=== PATIENT | male | born 1945 | race Caucasian/White ===

== ENCOUNTER 2019-08-08 09:42 | Outpatient (CLI) | payer MEDICARE, OTHER, SELFPAY ==
[2019-08-08 11:10] LABS: Basophils % 0.4 %; Eosinophils # 0.3 10^3/uL (0.0-0.8); Hemoglobin 14.5 g/dL (11.7-16.6); Lymphocytes # 1.6 10^3/uL (0.8-4.8); Lymphocytes % 22.1 %; Mean Corpuscular Hemoglobin 31.7 pg (28.0-34.0); Mean Corpuscular Volume 96.1 fL (80-94); Mean Platelet Volume 9.7 fL (7.4-10.4); Monocytes # 0.5 10^3/uL (0.2-0.9); Monocytes % 7.1 %; Neutrophils # 4.6 10^3/uL (1.8-7.7); Neutrophils % 66.1 %; Nucleated Red Blood Cells % 0 %; Platelet Count 263 10^3/cmm (130-400); Red Blood Count 4.58 10^6/uL (4.1-5.3); Red Cell Distribution Width 12.3 % (12.1-15.1)
[2019-08-08 11:41] LABS: Prostate Specific Antigen < 0.02 ng/mL (0-4)
[2019-08-08 11:52] LABS: Alanine Aminotransferase 16 U/L (0-41); Alkaline Phosphatase 74 IU/L (40-130); Anion Gap 15.4 (5-19); Aspartate Amino Transferase 15 U/L (0-40); Blood Urea Nitrogen 19 mg/dL (8-23); Calcium 9.7 mg/dL (8.5-10.5); Carbon Dioxide 27 mmol/L (22-29); Chloride 99 mmol/L (98-107); Globulin 2.5 g/dL (1.3-4.6); Glucose 122 mg/dL (65-115); Osmolality Calculated 282 mOsm/kg (285-295); Potassium 4.4 mmol/L (3.5-5.1); Sodium 137 mmol/L (136-145); Total Bilirubin 0.2 mg/dL (0.15-1.2); Total Protein 6.5 g/dL (6.6-8.7)
== END 2019-08-08 09:43 | disposition home or self-care (01) ==
LOC: ONCMED 09:42
PROVIDERS: Family Provider Internal Medicine; PCP Internal Medicine; Visit Provider Internal Medicine Hematology & Oncology
DX: C61 Malignant neoplasm of prostate (principal)
CPT/HCPCS: 36415; 80053; 84153; 85025

== ENCOUNTER 2019-08-12 08:18 | Outpatient (CLI) | payer MEDICARE, OTHER, SELFPAY ==
[2019-08-12] MEDS: lidocaine 1% INJ 20 mL INJECTION (09:00)
[2019-08-12] MEDS: goserelin acetate 10.8 mg Implant IM (09:15)
--- NOTE | 2019-08-12 17:39 | ONC FU_ITS ---
Dr. Loera follow up note Patient: Augusto Lancaster Unit #: [id number]: 1945 Dicatated By: Jovi Loera M.D.Date of Visit:Aug 12, 2019 Onc Med Follow-up/Prog Note History of Present Illness: Mr. Augusto Lancaster, 73-year-old gentleman who was diagnosed with prostrate cancer in September [address] scan of the pelvis done in September 2015 for staging purposes showed left pelvic lymphadenopathy without obvious bony disease. And his PSA was more than 700. In September 2015, He was started on combined androgen blockade with Zoladex and bicalutamide, with excellent response his repeat PSA on 05/02/2017 showed PSA less than 0.04 and testosterone less than 23 and OSMEL showed prostate was benign and tiny.Last 3 monthly dose of Zoladex was given on 02/02/2018 at that time at patient request it was changed to every 6 months.And bicalutamide was also discontinued because of related side effect and intolerance generalized weakness and fatigue, occasionally hot flashes and erectile dysfunction. seen by Dr. Flower on 10/31/2018 at that time role of ADT or castration was discussed in detail. Patient is reluctant to consider castration and also wants to delay Zoladex beyond 6 months. To resolve this issue he was referred to urology oncology at [facility] for evaluation where he was seen by Dr. Ramirez on 02/21/2019 and his recommendations were to continue with ADT as long as patient is tolerating and responding as there is a limited data to suggest equivalence for intermittent versus continuous dosing. And also mentioned that that his harm for use of intermittent ADT therapy for patient with metastatic prostrate cancer. Patient said he did discuss with him regarding schedule 3 months versus 6 months and approved 6 monthly ADT and patient is happy with that dosing and schedule, knowing the risk versus benefits. Came for follow-up, denies any specific complaints, no fever or chills, no nausea or vomiting, no diarrhea constipation,, no new bony pains. Tolerating 6 monthly Zoladex well Medications: There is no information available for Current Medications - Patient. Allergies: No Known Allergies. Review of Systems: Constitutional - Appetite is good and weight is stable. No fever, chills, hot flashes, or night sweats. Energy level is good, ENMT - No sinus congestion/drainage. No mouth sores. No sore throat or difficulty swallowing, Hematologic/Lymphatic - No abnormal bruising or bleeding, Respiratory - No shortness of breath. No cough. No pleuritic pain or hemoptysis, Cardiovascular - No angina pain. No palpitations, Gastrointestinal - No nausea or vomiting. No heartburn or acid reflux. No diarrhea or constipation. No blood in the stool or black stools, Genitourinary (M) - No dysuria or hematuria. No urinary frequency. No urgency or incontinence, Musculoskeletal - No joint or bone pain, Neurologic - No headache or dizziness. No numbness/paresthesias or other focal neurologic symptoms, Psychiatric - No anxiety or depression. No insomnia. Vital Signs: Performed on Aug 12, 2019 08:37 Height - 72.00 in Weight - 151.4 lbs (LOW) BSA - 1.89 sq.m BMI - 20.53 Temperature - 97.8 F (LOW) Pulse - 75 /min Respiration - 17 /min BP - 139/72 mm(hg) O2 Sat - 93 % (LOW) Pain - 0 Performance Status: 0 - Fully active, able to carry on all predisease activities without restrictions. (ECOG) Physical Examination: ENMT - no mouth sores, Respiratory - clear to auscultation, Cardiovascular - Regular rate and rhythm of heart, Abdomen - nontender, bowel sounds present, Extremities - no visible edema. Lab/Imaging: Most recent lab results are not available for this patient. Impression: Left prostrate cancer per needle biopsy done on 10/02/2015, showed involvement of left lateral apex [place] score 3+4 ,90% involvement, left lateral mid involvement [place] score 3+ 4, 80% involvement Left lateral base, [place] score 3+4, 90% involvement PSA time of diagnosis more than 700, CT scan of the pelvis done in September 2015 showed left pelvic lymphadenopathy with no obvious bone involvement Started on combined androgen blockade with Zoladex 10.8 mg every 3 months and bicalutamide 50 mg by mouth daily in September 2015. With excellent response confirmed with last PSA 0.04, testosterone less than 23, OSMEL showed tiny and benign appearing prostate gland on 05/02/2017 , in urology clinic follow-up visit and last Zoladex injection was given on 05/02/2017 PSA checked on 07/24/[address] scan of abdomen pelvis done on 11/30/2017 showed no metastatic disease bone scan done on 11/30/2017 showed no suspicious bone activities to suggest metastatic disease Plan: Discussed with patient regarding his labs white blood count 7 hemoglobin 14.5 crit 44 platelets 263,000 CMP within normal limits PSA less than 0.02 Clinically, patient is doing well with no signs symptoms suggestive of recurrence of disease, tolerating Zoladex well. We'll proceed with the next 6 monthly dose of Zoladex today and then he will return to clinic in 6 months with PSA. Signed By: Jovi Loera M.D. <<Signature on File>>
== END 2019-08-12 08:19 | disposition home or self-care (01) ==
LOC: ONCMED 08:18
PROVIDERS: Family Provider Internal Medicine; PCP Internal Medicine; Visit Provider Internal Medicine Hematology & Oncology
DX: C61 Malignant neoplasm of prostate (principal); Z79.818 Long term (current) use of other agents affecting estrogen receptors and estrogen levels
CPT/HCPCS: 96372; 96402; 99214; J2001; J9202

== ENCOUNTER 2020-02-07 10:47 | Outpatient (CLI) | payer MEDICARE, OTHER, SELFPAY ==
[2020-02-07 11:42] LABS: Prostate Specific Antigen 0.013 ng/mL (0-4)
== END 2020-02-07 10:48 | disposition home or self-care (01) ==
LOC: ONCMED 10:50
PROVIDERS: PCP Internal Medicine; Visit Provider Internal Medicine Hematology & Oncology
DX: C61 Malignant neoplasm of prostate (principal)
CPT/HCPCS: 36415; 84153

== ENCOUNTER 2020-02-10 05:45 | Outpatient (CLI) | payer MEDICARE, OTHER, SELFPAY ==
[2020-02-10] MEDS: lidocaine 1% INJ 20 mL INJECTION (14:45)
--- NOTE | 2020-02-10 14:48 | ONC FU_ITS ---
Thuan Rasmussen Patient Note Patient: Augusto Lancaster Unit #: [id number]: 1945 Dictated By: Celi PereyraDate of Visit: Feb 10, 2020 Onc MED Follow-Up/Prog Note Chief Complaint: Prostrate cancer History of Present Illness: Mr. Augusto Lancaster, 73-year-old gentleman who was diagnosed with prostate cancer in September [address] scan of the pelvis done in September 2015 for staging purposes showed left pelvic lymphadenopathy without obvious bony disease. His PSA was more than 700. In September 2015, he was started on combined androgen blockade with Zoladex and bicalutamide, with excellent response. His repeat PSA on 05/02/2017 showed PSA less than 0.04 and testosterone less than 23. OSMEL showed prostate was benign and tiny. A 3 month dose of Zoladex was given on 02/02/2018 at that time at patient request it was changed to every 6 months. Bicalutamide was also discontinued because of related side effect and intolerance Mr Lancaster continued to have generalized weakness and fatigue, occasionally hot flashes and erectile dysfunction. He was seen by Dr. Flower on 10/31/2018 at that time role of ADT or castration was discussed in detail. Patient is reluctant to consider castration and also wants to delay Zoladex beyond 6 months. To resolve this issue he was referred to urology oncology at [facility] for evaluation where he was seen by Dr. Ramirez on 02/21/2019 and his recommendations were to continue with ADT as long as patient is tolerating and responding, as there is a limited data to suggest equivalence for intermittent versus continuous dosing. Patient said he did discuss with him regarding schedule 3 months versus 6 months and approved 6 monthly ADT and patient is happy with that dosing and schedule, knowing the risk versus benefits. Mr. Lancaster is here today for follow-up. He is due for his 6-month dose of Zoladex. He looks well in general. He denies any fever or chills. He has had no signs or symptoms of infection for at least the last 72 hours. He denies any new shortness of breath orthopnea but states he is having persistent cough. His states that she thinks it is getting worse. She states he does smoke and has had a long-term history of smoking. Thus far it has been nonproductive but hacking she states she has heard some wheezing with him from time to time as well. He denies any nausea or vomiting. He has poor appetite. He has not tried any appetite stimulants. His ECOG is 1. He continues to have weight loss per his . His weight today is stable compared to August 12, 2019. We did discuss Marinol at length and he is willing to try this if his insurance will approve it otherwise he may try to partake in medicinal marijuana. He states he has been having some right shoulder discomfort and upper arm pain. He states it radiates around to his back towards the clavicles and upper ribs. He denies any trauma. He states he had been throwing sticks for his dog and wondered if he got something out of place at that time . This is been ongoing for several weeks now and is not improving. He has had no swelling or warmth. He denies any redness at the site. It is nontender on palpation. He states his bowel and bladder function are normal for him. He has had no neuropathy. He tolerated the last dose of Zoladex well. Past Medical History: Chronic obstructive pulmonary disease History of colon cancer Broken clavicle in 2008 Past Surgical History: TRUSP in 2016 Bilateral ORIF legs in 2001 Partial colon removal in 1995 Allergies: No Known Allergies. Medications: Family History: Mr. Lancaster's mother is . Mr. Lancaster's father is : stroke, and cva, and heart disease. mother had cancer-pt unsure what type. Social History: Mr. Lancaster is and he is retired. He is a daily smoker who smokes 0.5 packs/day. He is a former drinker. He has indicated exposure to the following products: cigarettes. Mr. Lancaster reports the following support systems: lives with spouse, significant other, family, or friends. His diet consists of regular meals. He indicates his activity level as: regular exercise. Review Of Symptoms: Constitutional Denies fevers, chills, night sweats, excessive fatigue or weight loss. Allergic/Immunologic No reactions. Eyes Denies significant visual changes. No diplopia. No amaurosis. ENMT Denies changes in hearing, sore throat, mouth sores, difficulty or changes in swallowing ability, and/or sinus drainage. Endocrine No diabetes, thyroid disease or hormone replacement. Denies hot flashes or night sweats. Hematologic/Lymphatic Denies easy bruising or bleeding. The patient denies any tender or palpable lymph nodes. Respiratory Denies dyspnea on exertion, chest pain, cough or hemoptysis. Denies orthopnea. Cardiovascular Denies anginal chest pain, palpitations or orthopnea. Gastrointestinal Denies nausea, vomiting, diarrhea, GI bleeding, or constipation. Denies change in bowel habits and/or stool color, no heartburn or early satiety. Genitourinary (M) Denies hematuria, dysuria, increased frequency, urgency, hesitancy or incontinence. Musculoskeletal Denies joint pain, swelling or redness. Right shoulder pain and limited ROM-see above. Integumentary Denies chronic rashes, inflammation, ulcerations or skin changes. Neurologic Denies headache, blurred vision, and no areas of focal weakness or numbness. Normal gait. No sensory problems. Psychiatric Denies insomnia, depression, gunjan or mood swings. Vital Signs: Performed on Feb 10, 2020 14:04 Height - 72.00 in Weight - 151.0 lbs (LOW) BSA - 1.89 sq.m BMI - 20.48 Temperature - 99.0 F (HIGH) Pulse - 87 /min Respiration - 20 /min BP - 124/69 mm(hg) O2 Sat - 96 % Pain - 0,0 - Fully active, able to carry on all predisease activities without restrictions. (ECOG) Physical Examination: Constitutional Alert, oriented, no acute distress. Skin pink, warm and dry. Head Normocephalic; atraumatic. Eyes Conjunctivae and sclerae are clear and without icterus. Pupils are reactive and equal. Neck Supple without masses or thyromegaly. No jugular venous distension. Hematologic/Lymphatic No petechiae or purpura. No tender or palpable lymph nodes in the cervical or supraclavicular areas. Respiratory Lungs are clear to auscultation without rhonchi or wheezing. Cardiovascular Regular rate and rhythm of heart without murmurs,clicks, gallops or rubs. Chest Chest is symmetric without chest wall deformities. Abdomen Non-tender, non-distended, no masses or ascites. Good bowel sounds noted in all quads. No guarding or rebound tenderness. No pulsatile masses. Back/Spine Non-tender to palpation. Extremities No visible deformities, no cyanosis, clubbing or edema. Musculoskeletal No tenderness or swelling, normal range of motion without obvious weakness except right shoulder is limited due to pain. Integumentary No rashes or lesions. Neurologic No sensory or motor deficits, normal cerebellar function, normal gait. Psychiatric Alert and oriented times three. Coherent speech. Verbalizes understanding of our discussions today. Laboratory:see flow sheet and below for labs from 02/07/2020 Impression: Left prostrate cancer per needle biopsy done on 10/02/2015, showed involvement of left lateral apex Darby score 3+4 ,90% involvement, left lateral mid involvement [place] score 3+ 4, 80% involvement Left lateral base, Darby score 3+4, 90% involvement PSA time of diagnosis more than 700, CT scan of the pelvis done in September 2015 showed left pelvic lymphadenopathy with no obvious bone involvement Started on combined androgen blockade with Zoladex 10.8 mg every 3 months and bicalutamide 50 mg by mouth daily in September 2015. With excellent response confirmed with last PSA 0.04, testosterone less than 23, OSMEL showed tiny and benign appearing prostate gland on 05/02/2017 , in urology clinic follow-up visit and last Zoladex injection was given on 05/02/2017 PSA checked on 07/24/[address] scan of abdomen pelvis done on 11/30/2017 showed no metastatic disease bone scan done on 11/30/2017 showed no suspicious bone activities to suggest metastatic disease Clinically, Mr Lancaster is doing well with no signs symptoms suggestive of recurrence of disease. He is tolerating Zoladex well. Plan: 1. Proceed with Zoladex today as scheduled. He is doing 10.8 mg every 6 months. 2. I have requested right shoulder, right humerus, right rib series as well as a chest x-ray for complaints as noted above. He plans to do these today while he is here. 3. Labs from February 07, 2020 were reviewed in detail and discussed with Mr. Mrs. Lancaster and a copy was given to them. His PSA was 0.013. 4. We will send in a request for prior authorization for Marinol 2.5 mg 1 or 2 up to 3 times daily for appetite. 5. We will plan to have Mr. Lancaster return in 6 months for his follow-up at which time I requested a CBC CMP PSA and testosterone level. He will be due for his 6-month Zoladex at that time as well. 6. Mr. Haley was instructed to contact us in the interim should questions or problems arise. We will call him with the x-rays once those are available. Signed By: Celi Pereyra-, AOCNP Jovi Loera MD <<Signature on File>>
--- NOTE | 2020-02-10 14:51 | ONC FU_ITS ---
Thuan Rasmussen Patient Note Patient: Augusto Avery Unit #: [id number]: 1945 Dictated By: Celi PereyraDate of Visit: Feb 10, 2020 Onc MED Follow-Up/Prog Note ADDENDUM: Mr. Haley declined a flu shot today. I do not believe in them . Signed By: Celi Pereyra-LUIS DANIEL AOCNP <<Signature on File>>
[2020-02-10] MEDS: goserelin acetate 10.8 mg Implant IM (15:00)
== END 2020-02-10 05:46 | disposition home or self-care (01) ==
LOC: ONCMED 05:47
PROVIDERS: PCP Internal Medicine; Visit Provider Nurse Practitioner
DX: C61 Malignant neoplasm of prostate (principal); R97.20 Elevated prostate specific antigen [PSA]; Z79.818 Long term (current) use of other agents affecting estrogen receptors and estrogen levels
CPT/HCPCS: 96372; 96402; 99214; J9202

== ENCOUNTER 2020-08-11 12:13 | Outpatient (CLI) | payer MEDICARE, OTHER, SELFPAY ==
[2020-08-11 12:45] LABS: Basophils % 0.5 %; Eosinophils # 0.2 10^3/uL (0.0-0.8); Eosinophils % 2.2 %; Hematocrit 43.6 % (42.0-52.0); Hemoglobin 14.4 g/dL (11.7-16.6); Lymphocytes # 1.9 10^3/uL (0.8-4.8); Lymphocytes % 23.7 %; Mean Corpuscular Hemoglobin 31.8 pg (28.0-34.0); Mean Corpuscular Volume 96.2 fL (80-94); Mean Platelet Volume 9.7 fL (7.4-10.4); Monocytes # 0.5 10^3/uL (0.2-0.9); Monocytes % 6.4 %; Neutrophils # 5.47 10^3/uL (1.8-7.7); Nucleated Red Blood Cells % 0 %; Platelet Count 271 10^3/cmm (130-400); Red Blood Count 4.53 10^6/uL (4.1-5.3); Red Cell Distribution Width 12.5 % (12.1-15.1); White Blood Count 8.2 10^3/uL (4.0-10.0)
[2020-08-11 13:32] LABS: Alanine Aminotransferase 14 U/L (0-41); Albumin Level 4.3 g/dL (3.5-5.2); Alkaline Phosphatase 80 IU/L (40-130); Anion Gap 15.2 (5-19); Aspartate Amino Transferase 13 U/L (0-40); Blood Urea Nitrogen 14 mg/dL (8-23); Calcium 9.1 mg/dL (8.5-10.5); Carbon Dioxide 26 mmol/L (22-29); Chloride 100 mmol/L (98-107); Globulin 2.4 g/dL (1.3-4.6); Glucose 106 mg/dL (65-115); Osmolality Calculated 285 mOsm/kg (285-295); Potassium 4.2 mmol/L (3.5-5.1); Sodium 137 mmol/L (136-145); Total Bilirubin 0.2 mg/dL (0.15-1.2); Total Protein 6.7 g/dL (6.6-8.7)
[2020-08-11] MEDS: lidocaine 1% INJ 20 mL INJECTION (14:54)
[2020-08-11] MEDS: goserelin acetate 10.8 mg Implant IM (15:05)
--- NOTE | 2020-08-16 20:33 | ONC FU_ITS ---
Dr. Loera follow up note Patient: Augusto Lancaster Unit #: [id number]: 1945 Dicatated By: Jovi Loera M.D.Date of Visit:Aug 11, 2020 Onc Med Follow-up/Prog Note History of Present Illness: Mr. Augusto Lancaster, 74-year-old gentleman who was diagnosed with prostate cancer in September [address] scan of the pelvis done in September 2015 for staging purposes showed left pelvic lymphadenopathy without obvious bony disease. His PSA was more than 700. In September 2015, he was started on combined androgen blockade with Zoladex and bicalutamide, with excellent response. His repeat PSA on 05/02/2017 showed PSA less than 0.04 and testosterone less than 23. OSMEL showed prostate was benign and tiny. A 3 month dose of Zoladex was given on 02/02/2018 at that time at patient request it was changed to every 6 months. Bicalutamide was also discontinued because of related side effect and intolerance Mr Lancaster continued to have generalized weakness and fatigue, occasionally hot flashes and erectile dysfunction. He was seen by Dr. Flower on 10/31/2018 at that time role of ADT or castration was discussed in detail. Patient is reluctant to consider castration and also wants to delay Zoladex beyond 6 months. To resolve this issue he was referred to urology oncology at [facility] for evaluation where he was seen by Dr. Ramirez on 02/21/2019 and his recommendations were to continue with ADT as long as patient is tolerating and responding, as there is a limited data to suggest equivalence for intermittent versus continuous dosing. Patient said he did discuss with him regarding schedule 3 months versus [address]Knoche approved 6 monthly ADT and patient is happy with that dosing and schedule, knowing the risk versus benefits. Came for follow-up, denies any specific complaints, no fever chills, no nausea or vomiting, no diarrhea constipation, no new bony pains, appetite is good occasionally hot flashes otherwise tolerating 6 monthly Zoladex well Medications: There is no information available for Current Medications - Patient. Allergies: No Known Allergies. Review of Systems: Review of Systems is not available for this patient. Vital Signs: Performed on Aug 11, 2020 14:44 Height - 72.00 in Weight - 155.4 lbs (HIGH) BSA - 1.91 sq.m BMI - 21.08 Temperature - 96.3 F (LOW) Pulse - 58 /min (LOW) Respiration - 18 /min BP - 152/67 mm(hg) (HIGH) O2 Sat - 93 % (LOW) Pain - 0 Fatigue - 0 Performance Status: 0 - Fully active, able to carry on all predisease activities without restrictions. (ECOG) Physical Examination: ENMT - No mouth sores, no thrush, no jaundice, Respiratory - Lungs are clear to auscultation, Cardiovascular - Regular rate and rhythm of heart, Abdomen - Soft, bowel sounds present, Extremities - No visible edema. Lab/Imaging: Most recent lab results are not available for this patient. Impression: Left prostrate cancer per needle biopsy done on 10/02/2015, showed involvement of left lateral apex Darby score 3+4 ,90% involvement, left lateral mid involvement Darby score 3+ 4, 80% involvement Left lateral base, [place] score 3+4, 90% involvement PSA time of diagnosis more than 700, CT scan of the pelvis done in September 2015 showed left pelvic lymphadenopathy with no obvious bone involvement Started on combined androgen blockade with Zoladex 10.8 mg every 3 months and bicalutamide 50 mg by mouth daily in September 2015. With excellent response confirmed with last PSA 0.04, testosterone less than 23, OSMEL showed tiny and benign appearing prostate gland on 05/02/2017 , in urology clinic follow-up visit and last Zoladex injection was given on 05/02/2017 PSA checked on 07/24/[address] scan of abdomen pelvis done on 11/30/2017 showed no metastatic disease bone scan done on 11/30/2017 showed no suspicious bone activities to suggest metastatic disease Plan: Discussed with patient regarding his labs white blood count 8.2 hemoglobin 14.4 hematocrit 43.6 platelets 271,000 CMP within normal limits PSA 0.010 compared to 0.013 previously Clinically, patient doing well with no new signs symptom suggestive of disease progression, tolerating 6 monthly Zoladex well, will proceed with next dose today and then he will return to clinic in 6 months with a PSA Signed By: Jovi Loera M.D. <<Signature on File>>
== END 2020-08-11 12:14 | disposition home or self-care (01) ==
PROVIDERS: PCP Internal Medicine; Visit Provider Internal Medicine Hematology & Oncology
DX: Z51.11 Encounter for antineoplastic chemotherapy (principal); C61 Malignant neoplasm of prostate; R97.20 Elevated prostate specific antigen [PSA]; R59.0 Localized enlarged lymph nodes; Z79.818 Long term (current) use of other agents affecting estrogen receptors and estrogen levels; Z79.899 Other long term (current) drug therapy
CPT/HCPCS: 36415; 80053; 84153; 85025; 96372; 96402; 99215; J9202

== ENCOUNTER 2020-12-23 09:55 | Emergency (ER) | payer MEDICARE, OTHER, SELFPAY ==
[2020-12-23 10:12] VITALS: BP 125/76; PULSE 97; RESP 17; TEMP 36.6; O2SAT 91; BMI 21.2
[2020-12-23 10:15] VITALS: BP 107/74; PULSE 90; RESP 19; O2SAT 90
--- NOTE | 2020-12-23 10:22 | XR_ITS ---
WS: [id number] Portable AP upright chest, 12/23/2020 Clinical Data: SOB Comparison: PA and lateral chest, 05/16/2017. Findings: No nodules, masses or effusions are seen. The heart is normal. The pulmonary vascularity is not increased. No pneumonia or pneumothorax is seen. The diaphragms are flattened. There is an old d istal right clavicular fracture. The aortic arch and descending aorta show calcification and tortuosi ty. Monitor leads are on the chest wall. XR/XR chest 1V portable [id number] Impression: Atherosclerosis and hyperinflation.
--- NOTE | 2020-12-23 10:23 | W.ED.GENADLT ---
HPI - General Adult General: Chief complaint: General Medical Stated complaint: multiple complaints Time Seen by Provider: 12/23/20 10:13 History of Present Illness: HPI narrative: Patient complains about back in right shoulder pain that started with dizziness about a week ago. Had an unknown LOC after the dizzy spell. Decided come in at that time said he has not really got feeling much better does have a shortness of breath with exertion which is gone for quite a while does have COPD and emphysema has history of prostate and colon cancer currently under treatment with radiation seeds in his prostate and gets a shot every 6 months. Patient denies any recent illness nausea and vomiting fever chills or other related problems currently pain resides in right shoulder chest area did have some numbness go down his left arm last couple days. Quit smoking 2 months ago Onset (ago): week(s) Radiation: back Severity: mild Severity scale (1-10): 3 Associated symptoms: Reports dyspnea (On exertion); Deny chest pain, headache(s), nausea, rash or vomiting Review of Systems Narrative: Sporadic numbness going down left arm Const: Denies: fever(s), chills or body aches Eyes: Denies: change in vision or blurry vision ENMT: Denies: throat pain or nasal congestion Card: Denies: chest pain or dyspnea on exertion Resp: Reports: dyspnea (On exertion); Denies: productive cough or non-productive cough GI: Denies: abdominal pain, nausea or vomiting : Denies: difficulty urinating Musc: Reports: back pain (Right shoulder area); Denies: extremity pain Skin/Breast: Denies: rash Neuro: Denies: headache(s) Psych: Denies: anxiety or depression Jaison/Lymph: Denies: easy bruising Physical Exam Const: COMMON NORMALS: no acute distress, average body habitus and patient oriented x3 HENMT: COMMON NORMALS: normocephalic HEAD & SCALP: normal to inspection and normocephalic FACE & SINUS: normal facial exam Eye: COMMON NORMALS: conjunctivae normal GENERAL EYE: appearance normal, both eyes and all related structures CONJUNCTIVA: Yes conjunctivae normal Neck/C-Spine: COMMON NORMALS: no JVD Chest: COMMONS NORMALS: normal inspection of the chest Resp: COMMON NORMALS: normal respiratory effort AUSCULTATION: diminished lung sounds diffuse Cardio: COMMON NORMALS: no JVD, regular rate and regular rhythm RATE: regular rate RHYTHM: regular rhythm GI: COMMON NORMALS: Normal to inspection, nondistended, normoactive bowel sounds present Extremity: COMMON NORMALS: normal to inspection and full ROM Neuro: COMMON NORMALS: patient oriented x3 Course Vital Signs: Vital signs: Vital Signs Temperature 97.9 F 12/23/20 14:10 Pulse Rate 72 12/23/20 14:10 Respiratory Rate 18 12/23/20 14:10 Blood Pressure 123/75 12/23/20 14:10 Pulse Oximetry 94 12/23/20 14:10 MDM - General Adult MDM Narrative: Medical decision making narrative: Patient's labs appear good except low albumin slightly low sodium. Patient has pretty severe emphysema and COPD. EKGs troponin look fine. Patient encouraged to follow-up primary care provider and see about getting a exercise stress test done. Also encouraged to drink his ensures that he has at home. Lab Data: Labs: Lab Results 12/23/20 12/23/20 12/23/20 Range/Units 11:02 11:02 11:02 WBC 4.1 (4.0-10.0) 10^3/ uL RBC 5.02 (4.1-5.3) 10^6/u L Hgb 15.6 (11.7-16.6) g/dL Hct 45.4 (42.0-52.0) % MCV 90.4 (80-94) fl MCH 31.1 (28.0-34.0) pg MCHC 34.4 (30.0-36.0) g/dL RDW 12.5 (12.1-15.1) % Plt Count 199 (130-400) 10^3/c mm MPV 10.2 (7.4-10.4) fL Neut % (Auto) 69.5 % Lymph % (Auto) 18.6 % [place] % (Auto) 10.2 % Eos % (Auto) 0.2 % Baso % (Auto) 0.5 % Neut # (Auto) 2.87 (1.8-7.7) 10^3/u L Lymph # (Auto) 0.8 (0.8-4.8) 10^3/u L [place] # (Auto) 0.4 (0.2-0.9) 10^3/u L Eos # (Auto) 0.0 (0.0-0.8) 10^3/u L Baso # (Auto) 0.0 (0.0-0.1) 10^3/u L Nucleated RBC % (a uto) 0 % Nucleated RBCs # 0.0 /100WBC PT 13.50 (12.1-14.9) SECO NDS INR 1.00 (0.8-1.2) D-Dimer 0.89 H (0-0.59) ug/mIFE U Sodium 132 L (136-145) mmol/L Potassium 4.3 (3.5-5.1) mmol/L Chloride 94 L (98-107) mmol/L Carbon Dioxide 25 (22-29) mmol/L Anion Gap 17.3 (5-19) BUN 14 (8-23) mg/dL Creatinine 0.8 (0.7-1.2) mg/dL GFR Calculation Not Reportable Glucose 138 H (65-115) mg/dL Calculated Osmolal ity 277 L (285-295) mOsm/k g Calcium 8.6 (8.5-10.5) mg/dL Total Bilirubin 0.4 (0.15-1.2) mg/dL AST 25 (0-40) U/L ALT 23 (0-41) U/L Alkaline Phosphata se 70 (40-130) IU/L Troponin T Baselin e (0-15) ng/L Troponin T 120 Min [place] (0-15) ng/L Delta Troponin T (0-10) ABS# C-Reactive Protein 6.0 H (0.0-4.9) mg/L Total Protein 5.9 L (6.6-8.7) g/dL Albumin 3.6 (3.5-5.2) g/dL Globulin 2.3 (1.3-4.6) g/dL Lipase 24 (13-60) U/L Urine Color (Yellow) Urine Appearance (CLEAR) Urine pH (5-7) Ur Specific Gravit y (1.005-1.030) Urine Protein (Negative) Urine Glucose (UA) (Normal) Urine Ketones (Negative) Urine Blood (Negative) Urine Nitrate (Negative) Urine Bilirubin (Negative) Urine Urobilinogen (Negative) mg/dL Ur Leukocyte Emmy ase (Negative) Urine RBC (0-2) /hpf Urine WBC (0-5) /hpf Ur Squamous Epith Cells (0-5) /hpf Amorphous Sediment Urine Bacteria (NONE) /hpf Urine Mucus /hpf 12/23/20 12/23/20 12/23/20 Range/Units 11:02 13:05 13:14 WBC (4.0-10.0) 10^3/ uL RBC (4.1-5.3) 10^6/u L Hgb (11.7-16.6) g/dL Hct (42.0-52.0) % MCV (80-94) fl MCH (28.0-34.0) pg MCHC (30.0-36.0) g/dL RDW (12.1-15.1) % Plt Count (130-400) 10^3/c mm MPV (7.4-10.4) fL Neut % (Auto) % Lymph % (Auto) % [place] % (Auto) % Eos % (Auto) % Baso % (Auto) % Neut # (Auto) (1.8-7.7) 10^3/u L Lymph # (Auto) (0.8-4.8) 10^3/u L [place] # (Auto) (0.2-0.9) 10^3/u L Eos # (Auto) (0.0-0.8) 10^3/u L Baso # (Auto) (0.0-0.1) 10^3/u L Nucleated RBC % (a uto) % Nucleated RBCs # /100WBC PT (12.1-14.9) SECO NDS INR (0.8-1.2) D-Dimer (0-0.59) ug/mIFE U Sodium (136-145) mmol/L Potassium (3.5-5.1) mmol/L Chloride (98-107) mmol/L Carbon Dioxide (22-29) mmol/L Anion Gap (5-19) BUN (8-23) mg/dL Creatinine (0.7-1.2) mg/dL GFR Calculation Glucose (65-115) mg/dL Calculated Osmolal ity (285-295) mOsm/k g Calcium (8.5-10.5) mg/dL Total Bilirubin (0.15-1.2) mg/dL AST (0-40) U/L ALT (0-41) U/L Alkaline Phosphata se (40-130) IU/L Troponin T Baselin e 14 (0-15) ng/L Troponin T 120 Min [place] 11.64 (0-15) ng/L Delta Troponin T -2.36 L (0-10) ABS# C-Reactive Protein (0.0-4.9) mg/L Total Protein (6.6-8.7) g/dL Albumin (3.5-5.2) g/dL Globulin (1.3-4.6) g/dL Lipase (13-60) U/L Urine Color Dark yellow (Yellow) Urine Appearance Clear (CLEAR) Urine pH 5 (5-7) Ur Specific Gravit y 1.010 (1.005-1.030) Urine Protein Trace (Negative) Urine Glucose (UA) Norm (Normal) Urine Ketones 1+ H (Negative) Urine Blood Neg (Negative) Urine Nitrate Negative (Negative) Urine Bilirubin 1+ H (Negative) Urine Urobilinogen 1 H (Negative) mg/dL Ur Leukocyte Emmy ase Negative (Negative) Urine RBC None (0-2) /hpf Urine WBC None (0-5) /hpf Ur Squamous Epith Cells 0-4 H (0-5) /hpf Amorphous Sediment Not Reportable Urine Bacteria 1+ H (NONE) /hpf Urine Mucus 1+ /hpf EKG Data^: EKG 1: EKG interpretation date: 12/23/20 EKG interpretation time: 10:53 Computer generated interpretation: Chest X-Ray 12/23/20 10:22 Impression: Atherosclerosis and hyperinflation. Chest CTA 12/23/20 11:40 IMPRESSION: 1. No pulmonary embolism. 2. Chronic emphysema. 3. RIGHT lower lobe atelectasis with bronchiectasis and pneumonitis. Sinus rhythm ventricular rate 88 bpm ID interval 160 ms QRS duration 95 ms QT 347 ms leads V4 and V5 show possible mild ST depression EKG 2: EKG interpretation date: 12/23/20 EKG interpretation time: 12:18 Computer generated interpretation: Chest X-Ray 12/23/20 10:22 Impression: Atherosclerosis and hyperinflation. Chest CTA 12/23/20 11:40 IMPRESSION: 1. No pulmonary embolism. 2. Chronic emphysema. 3. RIGHT lower lobe atelectasis with bronchiectasis and pneumonitis. Ventricular rate 78 bpm ID interval 189 ms QRS duration 93 ms QT 385 ms sinus rhythm with occasional PVC still with minimal ST depression P lead Discharge Plan Discharge Patient Disposition: Home Clinical Impression: Pneumonitis Emphysema lung Qualifiers: Emphysema type: unilateral Qualified Code(s): J43.0 - Unilateral pulmonary emphysema [MacLeod's syndrome] Condition: Stable Prescriptions: New Celebrex 100 mg capsule 100 mg PO BID Qty: 20 RF: 0 Advair HFA 115-21 mcg/actuation HFA aerosol inhaler 2 inh inhalation BID Qty: 12 RF: 0 Discontinued naproxen sodium [Aleve] 220 mg Tablet 440 mg PO Q12H PRN (Reason: Pain) RF: 0 Discharge Orders: Discharge ED (Routine); Ordered 12/23/20 Ordered By: Adryan Haji Referrals: Vu Kang DO [Primary Care Provider] - Discharge Diet: As Directed Discharge Activity: Resume usual activity Patient Instructions: Emphysema (ED) Activity Restrictions/Additional Instructions: Follow-up with medical provider as directed. Take medications as prescribed. Return to the ER or your medical provider if condition worsens. Please read and understand discharge instructions. If any questions ask please. Contact your primary care and see about a referral to cardiology for exercise stress test. Coding Level of Care Code ED Candy Packer for Fazal Fwadrien Exam Comprehensive
[2020-12-23 10:45] VITALS: BP 107/74; PULSE 88; RESP 17; O2SAT 93
--- NOTE | 2020-12-23 10:50 | PC.PHAR ---
pt states he takes no rx medications-
[2020-12-23 11:08] LABS: Basophils % 0.5 %; Eosinophils % 0.2 %; Hematocrit 45.4 % (42.0-52.0); Hemoglobin 15.6 g/dL (11.7-16.6); Lymphocytes # 0.8 10^3/uL (0.8-4.8); Lymphocytes % 18.6 %; Mean Corpuscular HGB Conc 34.4 g/dL (30.0-36.0); Mean Corpuscular Hemoglobin 31.1 pg (28.0-34.0); Mean Corpuscular Volume 90.4 fl (80-94); Mean Platelet Volume 10.2 fL (7.4-10.4); Monocytes # 0.4 10^3/uL (0.2-0.9); Monocytes % 10.2 %; Neutrophils # 2.87 10^3/uL (1.8-7.7); Neutrophils % 69.5 %; Nucleated Red Blood Cells % 0 %; Platelet Count 199 10^3/cmm (130-400); Red Blood Count 5.02 10^6/uL (4.1-5.3); Red Cell Distribution Width 12.5 % (12.1-15.1); White Blood Count 4.1 10^3/uL (4.0-10.0)
[2020-12-23] MEDS: sodium chloride 0.9% 1,000 ML 999 ML IV (11:11)
[2020-12-23 11:34] LABS: D Dimer 0.89 ug/mIFEU (0-0.59)
--- NOTE | 2020-12-23 11:40 | CT_ITS ---
WS: [id number] CT CHEST ANGIOGRAPHY WITH REFORMATS HISTORY: pain, sob, elevated Dimer TECHNIQUE: Contiguous axial images are obtained through the chest during arterial injection of intrav enous contrast. Images are reconstructed to evaluate the pulmonary arteries. MIP imaging also reviewe d. All CT scans at [facility] use at least one of these dose optimization techniques: aut omated exposure control; mA and/or kV adjustment per patient size (includes targeted exams where dose is matched to clinical indication); or iterative reconstruction. CONTRAST: Omnipaque 300; 95 mL IV. DLP: 562.66 mGy.cm COMPARISON: None available. Excellent opacification of the pulmonary arteries. No filling defects or pulmonary emboli are identif ied. Normal size pulmonary artery. Moderate atherosclerosis aorta. Heart size is normal. No pericardi al or pleural effusions. Marked emphysematous changes. Centrilobular emphysema. Focal area of atelectasis and dependent change s of pleural thickening at the RIGHT lung base. There is also associated mild bronchiectasis in the R IGHT lower lobe. Mediastinal and hilar lymph nodes. RIGHT lower lobe intralobar lymph node measures 9 mm. Mild thickening of the LEFT adrenal gland. Mild atherosclerotic disease within the aorta. Osteopenia. Increased thoracic kyphosis. CT/CT angio chest PE protcl [id number] IMPRESSION: 1. No pulmonary embolism. 2. Chronic emphysema. 3. RIGHT lower lobe atelectasis with bronchiectasis and pneumonitis.
[2020-12-23 11:43] LABS: Alanine Aminotransferase 23 U/L (0-41); Albumin Level 3.6 g/dL (3.5-5.2); Alkaline Phosphatase 70 IU/L (40-130); Anion Gap 17.3 (5-19); Aspartate Amino Transferase 25 U/L (0-40); Blood Urea Nitrogen 14 mg/dL (8-23); Calcium 8.6 mg/dL (8.5-10.5); Carbon Dioxide 25 mmol/L (22-29); Chloride 94 mmol/L (98-107); Globulin 2.3 g/dL (1.3-4.6); Glucose 138 mg/dL (65-115); Lipase 24 U/L (13-60); Osmolality Calculated 277 mOsm/kg (285-295); Potassium 4.3 mmol/L (3.5-5.1); Sodium 132 mmol/L (136-145); Total Bilirubin 0.4 mg/dL (0.15-1.2); Total Protein 5.9 g/dL (6.6-8.7)
[2020-12-23 11:45] LABS: Troponin(5th) Baseline 14 ng/L (0-15)
--- NOTE | 2020-12-23 12:22 | ECG_ITS ---
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 Measurements Intervals [place] Rate: 78 P: 92 MN: 189 QRS: 85 QRSD: 93 T: 73 QT: 385 QTc: 440 Interpretive Statements SINUS RHYTHM WITH OCCASIONAL SUPRAVENTRICULAR PREMATURE COMPLEXES MINIMAL ST DEPRESSION [0.025+ mV ST DEPRESSION] Compared to ECG 12/23/2020 10:53:53 No significant changes Electronically Signed On 12-23-2020 19:43:40 CDT by Sita Bran M.D. [id number]
--- NOTE | 2020-12-23 12:29 | PC.NURSE ---
report received from Airam PIKE
[2020-12-23] MEDS: iohexol 350 mg/mL 100 mL Btl IV (12:31)
[2020-12-23 12:42] VITALS: BP 112/58; PULSE 75; RESP 16; O2SAT 97
[2020-12-23 13:21] VITALS: BP 140/71; PULSE 74; RESP 16; O2SAT 97
[2020-12-23 13:22] LABS: Add Urine Microscopic? YES; Bilirubin Urine 1+ (Negative); Blood Urine Neg (Negative); Glucose Urine UA Norm (Normal); Ketones Urine 1+ (Negative); Leukocyte Esterase Urine Negative (Negative); Nitrate Urine Negative (Negative); Protein Urine Trace (Negative); Urine Appearance Clear (CLEAR); Urine Color Dark Yellow (Yellow); Urobilinogen Urine 1 mg/dL (Negative); pH Urine 5 (5-7)
[2020-12-23 13:25] LABS: Add Urine Culture? No; Bacteria Urine 1+ /hpf; Mucus Urine 1+ /hpf; Squamous Epithelial Cell Urine 0-4 /hpf (0-5)
[2020-12-23 13:49] LABS: Troponin 5 2HR 11.64 ng/L (0-15)
[2020-12-23 14:10] VITALS: BP 123/75; PULSE 72; RESP 18; TEMP 36.6; O2SAT 94
[2020-12-23 14:12] LABS: Troponin 5 2HR Delta -2.36 ABS# (0-10)
--- NOTE | 2020-12-23 16:22 | ECG_ITS ---
[facility] Test Date: 2020-12-23 Pat Name: Augusto Avery Department: Room: Gender: Male Rn Clinical Quality: : 1945 Requested By: Adryan Haji Order Number: [id number] Maryellen MD: Sita Bran M.D. Measurements Intervals [place] Rate: 88 P: 82 ME: 160 QRS: 88 QRSD: 95 T: 88 QT: 347 QTc: 422 Interpretive Statements SINUS RHYTHM MODERATE ST DEPRESSION [0.05+ mV ST DEPRESSION] Compared to ECG 03/02/2016 14:06:48 ST (T wave) deviation now present Sinus bradycardia no longer present T-wave abnormality no longer present Electronically Signed On 12-23-2020 19:42:19 CDT by Sita Bran M.D. [id number]
== END 2020-12-23 14:13 | disposition home or self-care (01) ==
PROVIDERS: Emergency Provider Nurse Practitioner Family; PCP Internal Medicine
DX: J43.0 Unilateral pulmonary emphysema [MacLeod's syndrome] (principal); J18.9 Pneumonia, unspecified organism
CPT/HCPCS: 36415; 71045; 71275; 80053; 81001; 83690; 84484; 85025; 85378; 85610; 86140; 93005; 96360; 99284; J7030; Q9967

== ENCOUNTER 2021-03-22 12:16 | Outpatient (CLI) | payer MEDICARE, OTHER, SELFPAY ==
[2021-03-22 13:23] LABS: Prostate Specific Antigen 0.018 ng/mL (0-4)
[2021-03-22] MEDS: lidocaine 1% INJ 20 mL INJECTION (14:40)
--- NOTE | 2021-03-22 14:47 | ONC FU_ITS ---
Dr. Loera follow up note Patient: Augusto Lancaster Unit #: [id number]: 1945 Dicatated By: Jovi Loera M.D.Date of Visit:Mar 22, 2021 Onc Med Follow-up/Prog Note History of Present Illness: Mr. Augusto Lancaster, 75-year-old gentleman who was diagnosed with prostate cancer in September [address] scan of the pelvis done in September 2015 for staging purposes showed left pelvic lymphadenopathy without obvious bony disease. His PSA was more than 700. In September 2015, he was started on combined androgen blockade with Zoladex and bicalutamide, with excellent response. His repeat PSA on 05/02/2017 showed PSA less than 0.04 and testosterone less than 23. OSMEL showed prostate was benign and tiny. A 3 month dose of Zoladex was given on 02/02/2018 at that time at patient request it was changed to every 6 months. Bicalutamide was also discontinued because of related side effect and intolerance Mr Lancaster continued to have generalized weakness and fatigue, occasionally hot flashes and erectile dysfunction. He was seen by Dr. Flower on 10/31/2018 at that time role of ADT or castration was discussed in detail. Patient is reluctant to consider castration and also wants to delay Zoladex beyond 6 months. To resolve this issue he was referred to urology oncology at [facility] for evaluation where he was seen by Dr. Ramirez on 02/21/2019 and his recommendations were to continue with ADT as long as patient is tolerating and responding, as there is a limited data to suggest equivalence for intermittent versus continuous dosing. Patient said he did discuss with him regarding schedule 3 months versus [address]Knoche approved 6 monthly ADT and patient is happy with that dosing and schedule, knowing the risk versus benefits. Came for follow-up, denies any specific complaint, feeling much better since on 6 monthly Zoladex, hot flashes almost resolved, overall feeling well, no fever chills, no nausea or vomiting, no diarrhea constipation, no new bony pains, no dysuria or hematuria. Tolerating 6 monthly Zoladex well otherwise Medications: There is no information available for Current Medications - Patient. Allergies: No Known Allergies. Review of Systems: Review of Systems is not available for this patient. Vital Signs: Performed on Mar 22, 2021 14:24 Height - 72.00 in Weight - 158.4 lbs (HIGH) BSA - 1.93 sq.m BMI - 21.48 Temperature - 99.6 F (HIGH) Pulse - 93 /min Respiration - 18 /min BP - 137/80 mm(hg) O2 Sat - 94 % (LOW) Pain - 0 Fatigue - 2 Performance Status: Perf. Status is not available for this patient. Physical Examination: Physical Exam-Comments is not available for this patient. Lab/Imaging: Most recent lab results are not available for this patient. 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 With excellent response confirmed with last PSA 0.04, testosterone less than 23, OSMEL showed tiny and benign appearing prostate gland on 05/02/2017 , in urology clinic follow-up visit and last Zoladex injection was given on 05/02/2017 PSA checked on 07/24/[address] scan of abdomen pelvis done on 11/30/2017 showed no metastatic disease bone scan done on 11/30/2017 showed no suspicious bone activities to suggest metastatic disease Clinically, Mr Lancaster is doing well with no signs symptoms suggestive of recurrence of disease. He is tolerating Zoladex well. Plan: Discussed with patient regarding his labs PSA 0.018 compared to 0.010 on August 11, 2020 Clinically, patient is doing well with no new signs symptoms history of recurrence of disease his follow-up PSA has gone up to 0.018 compared to 0.010 on August 11, 2020., Patient was advised 3 monthly Zoladex is usually recommended but due to associated symptoms specially hot flashes, it was changed to every 6-month at patient request, will proceed with next 6 monthly dose of Zoladex today and then he will return to clinic in 6 months with PSA if PSA continues to go up, may consider PSMA scan Signed By: Jovi Loera M.D. <<Signature on File>>
[2021-03-22] MEDS: goserelin acetate 10.8 mg Implant SUBCUT (15:00)
== END 2021-03-22 12:17 | disposition home or self-care (01) ==
LOC: ONCMED 12:18
PROVIDERS: Visit Provider Internal Medicine Hematology & Oncology
DX: C61 Malignant neoplasm of prostate (principal); R97.20 Elevated prostate specific antigen [PSA]; R59.0 Localized enlarged lymph nodes; Z79.818 Long term (current) use of other agents affecting estrogen receptors and estrogen levels
CPT/HCPCS: 36415; 84153; 96372; 96402; 99215; J9202

== ENCOUNTER 2021-09-21 12:10 | Oncology outpatient (recurring) (ONCR) | payer MEDICARE, OTHER, SELFPAY ==
[2021-09-21] MEDS: lidocaine 1% INJ 20 mL SUBCUT (15:00)
[2021-09-21] MEDS: goserelin acetate 10.8 mg Implant SUBCUT (15:18)
== END 2021-09-21 23:59 | disposition home or self-care (01) ==
PROVIDERS: Visit Provider Internal Medicine Hematology & Oncology
DX: C61 Malignant neoplasm of prostate (principal); R59.0 Localized enlarged lymph nodes; J43.9 Emphysema, unspecified; Z79.818 Long term (current) use of other agents affecting estrogen receptors and estrogen levels; Z87.891 Personal history of nicotine dependence
CPT/HCPCS: 80053; 84153; 85025; 96372; 96401; 99214; 99999; J9202

== ENCOUNTER 2022-03-24 12:55 | Oncology outpatient (recurring) (ONCR) | payer MEDICARE, OTHER, SELFPAY ==
[2022-03-24 13:42] LABS: Prostate Specific Antigen < 0.014 ng/mL (0-4)
[2022-03-24] MEDS: leuprolide 22.5 mg Kit IM (15:24)
== END 2022-04-23 23:59 | disposition home or self-care (01) ==
PROVIDERS: Visit Provider Internal Medicine Hematology & Oncology
DX: C61 Malignant neoplasm of prostate (principal); C77.5 Secondary and unspecified malignant neoplasm of intrapelvic lymph nodes; C79.51 Secondary malignant neoplasm of bone; R53.1 Weakness; R53.83 Other fatigue; N52.9 Male erectile dysfunction, unspecified; Z79.818 Long term (current) use of other agents affecting estrogen receptors and estrogen levels; Z79.899 Other long term (current) drug therapy; Z87.891 Personal history of nicotine dependence
CPT/HCPCS: 36415; 84153; 96402; 99214; J9217

== ENCOUNTER 2022-09-12 09:05 | Oncology outpatient (recurring) (ONCR) | payer MEDICARE, OTHER, SELFPAY ==
[2022-09-12 09:35] LABS: Basophils % 0.5 %; Eosinophils # 0.4 10^3/uL (0.0-0.8); Eosinophils % 4.8 %; Hematocrit 44.3 % (42.0-52.0); Hemoglobin 14.4 g/dL (11.7-16.6); Lymphocytes # 1.9 10^3/uL (0.8-4.8); Lymphocytes % 25.3 %; Mean Corpuscular HGB Conc 32.5 g/dL (30.0-36.0); Mean Corpuscular Hemoglobin 30.9 pg (28.0-34.0); Mean Corpuscular Volume 95.1 fl (80-94); Mean Platelet Volume 9.2 fL (7.4-10.4); Monocytes # 0.6 10^3/uL (0.2-0.9); Monocytes % 8.6 %; Neutrophils # 4.42 10^3/uL (1.8-7.7); Neutrophils % 60.5 %; Nucleated Red Blood Cells % 0 %; Platelet Count 278 10^3/cmm (130-400); Red Blood Count 4.66 10^6/uL (4.1-5.3); Red Cell Distribution Width 13.2 % (12.1-15.1); White Blood Count 7.3 10^3/uL (4.0-10.0)
[2022-09-12 09:59] LABS: Alanine Aminotransferase 18 U/L (0-41); Alkaline Phosphatase 74 U/L (40-130); Anion Gap 14.1 (5-19); Aspartate Amino Transferase 15 U/L (0-40); Blood Urea Nitrogen 13 mg/dL (8-23); Calcium 9.4 mg/dL (8.5-10.5); Carbon Dioxide 28 mmol/L (22-29); Chloride 103 mmol/L (98-107); Globulin 2.6 g/dL (1.3-4.6); Glucose 109 mg/dL (65-115); Osmolality Calculated 293 mOsm/kg (285-295); Potassium 4.1 mmol/L (3.5-5.1); Sodium 141 mmol/L (136-145); Testosterone Total 2.5 ng/dL (193-740); Total Bilirubin 0.3 mg/dL (0.15-1.2); Total Protein 6.6 g/dL (6.6-8.7)
[2022-09-12 10:00] LABS: Prostate Specific Antigen < 0.014 ng/mL (0-4)
[2022-09-12] MEDS: leuprolide 22.5 mg Kit IM (11:47)
== END 2022-09-21 23:59 | disposition home or self-care (01) ==
PROVIDERS: Visit Provider Internal Medicine Hematology & Oncology
DX: C61 Malignant neoplasm of prostate (principal); C77.5 Secondary and unspecified malignant neoplasm of intrapelvic lymph nodes; C79.51 Secondary malignant neoplasm of bone; R53.1 Weakness; R53.83 Other fatigue; N52.9 Male erectile dysfunction, unspecified; Z79.818 Long term (current) use of other agents affecting estrogen receptors and estrogen levels; Z79.899 Other long term (current) drug therapy; Z87.891 Personal history of nicotine dependence
CPT/HCPCS: 36415; 80053; 84153; 84403; 85025; 96401; 99214; J9217

== ENCOUNTER → 2022-11-23 15:05 | Outpatient (BNVA) | payer MEDICARE, OTHER, SELFPAY | PROVIDERS: PCP Nurse Practitioner Family; Referring Provider Nurse Practitioner Family; Visit Provider Internal Medicine | DX: C61 Malignant neoplasm of prostate (principal); I10 Essential (primary) hypertension; E05.90 Thyrotoxicosis, unspecified without thyrotoxic crisis or storm | CPT/HCPCS: 36415; 83516; 84439; 84443; 84480; 86376; 86800; 99204 ==

== ENCOUNTER → 2022-11-28 11:36 | Outpatient (BNVA) | payer MEDICARE, OTHER, SELFPAY | PROVIDERS: PCP Nurse Practitioner Family; Visit Provider Internal Medicine Pulmonary Disease | DX: J30.2 Other seasonal allergic rhinitis (principal); J44.9 Chronic obstructive pulmonary disease, unspecified; R06.02 Shortness of breath; Z87.891 Personal history of nicotine dependence | CPT/HCPCS: 36415; 82785; 85651; 86003; 86140; 86160; 86162; 86235; 86255; 86376; 99204 ==

== ENCOUNTER 2022-12-13 11:43 | Outpatient (CLI) | payer MEDICARE, OTHER, SELFPAY ==
--- NOTE | 2022-12-13 12:15 | CT_ITS ---
WS: [id number] LDCT LUNG CANCER SCREENING TECHNIQUE: Noncontrast CT of the chest with coronal and sagittal reformatted images. CLINICAL INFORMATION: Cancer Screen COMPARISON: CTA 12/23/2020 DLP: 53.69 mGy.cm DIvol: Mean CTDIvol: 0.90 (mGy) All CT scans at [facility] use at least one of these dose optimization techniques: automat ed exposure control; mA and/or kV adjustment per patient size (includes targeted exams where dose is matched to clinical indication); or iterative reconstruction. FINDINGS: Moderate chronic emphysematous changes. Subsegmental atelectasis and fibrosis RIGHT lower l obe. A few calcified granulomas. Aortic calcification. Normal caliber thoracic aorta. Coronary calcification. No mediastinal or hilar lymphadenopathy. No axillary lymphadenopathy. Adrenal glands are normal. Normal GE junction. Splenic artery calcification. Mild thoracic curve. Mil d thoracic kyphosis. IMPRESSION: CT/CT lung screening [id number] LUNG-RADS: 2-Benign Appearance or Behavior FOLLOW UP: 12 Month: Continue annual screening with LDCT
== END 2022-12-13 11:44 | disposition home or self-care (01) ==
PROVIDERS: PCP Nurse Practitioner Family; Visit Provider Internal Medicine Pulmonary Disease
DX: Z87.891 Personal history of nicotine dependence (principal); Z12.2 Encounter for screening for malignant neoplasm of respiratory organs
CPT/HCPCS: 71271

== ENCOUNTER 2022-12-14 06:48 | Outpatient (CLI) | payer MEDICARE, OTHER, SELFPAY ==
[2022-12-14 07:33] VITALS: PULSE 95; RESP 18; O2SAT 94
[2022-12-14 07:38] VITALS: PULSE 93
== END 2022-12-14 06:49 | disposition home or self-care (01) ==
LOC: RT 06:49
PROVIDERS: PCP Nurse Practitioner Family; Visit Provider Internal Medicine Pulmonary Disease
DX: R06.02 Shortness of breath (principal)
CPT/HCPCS: 94060; 94618; 94726; 94729; J7613

== ENCOUNTER → 2023-01-13 09:17 | Outpatient (BNVA) | payer MEDICARE, OTHER, SELFPAY | PROVIDERS: PCP Nurse Practitioner Family; Visit Provider Internal Medicine Pulmonary Disease | DX: J44.9 Chronic obstructive pulmonary disease, unspecified (principal); Z12.2 Encounter for screening for malignant neoplasm of respiratory organs; J45.909 Unspecified asthma, uncomplicated; J98.4 Other disorders of lung; I10 Essential (primary) hypertension; Z87.891 Personal history of nicotine dependence; Z85.46 Personal history of malignant neoplasm of prostate | CPT/HCPCS: 99214 ==

== ENCOUNTER → 2023-02-01 10:01 | Outpatient (BNVA) | payer MEDICARE, OTHER, SELFPAY | PROVIDERS: PCP Nurse Practitioner Family; Visit Provider Internal Medicine | DX: E05.90 Thyrotoxicosis, unspecified without thyrotoxic crisis or storm (principal); I10 Essential (primary) hypertension | CPT/HCPCS: 99214 ==

== ENCOUNTER 2023-03-13 12:30 | Oncology outpatient (recurring) (ONCR) | payer MEDICARE, OTHER, SELFPAY ==
[2023-02-28 12:12] VITALS: BP 147/74; PULSE 78; RESP 16; TEMP 36.9; O2SAT 91
[2023-02-28 12:22] LABS: Basophils # 0.1 10^3/uL (0.0-0.1); Basophils % 0.8 %; Eosinophils # 0.3 10^3/uL (0.0-0.8); Eosinophils % 3.5 %; Hematocrit 42.7 % (37-53); Lymphocytes # 2.2 10^3/uL (0.8-4.8); Lymphocytes % 27.7 %; Mean Corpuscular Hemoglobin 30.9 pg (27-33); Mean Corpuscular Volume 93.4 fl (82-101); Mean Platelet Volume 8.9 fL (7.4-10.4); Monocytes # 0.7 10^3/uL (0.2-0.9); Neutrophils # 4.59 10^3/uL (1.8-7.7); Neutrophils % 58.7 %; Nucleated Red Blood Cells % 0 %; Platelet Count 318 10^3/cmm (157-399); Red Blood Count 4.57 10^6/uL (3.85-5.65); Red Cell Distribution Width 13.5 % (12.1-15.1)
[2023-02-28 13:11] LABS: Alanine Aminotransferase 24 U/L (0-41); Albumin Level 4.3 g/dL (3.5-5.2); Alkaline Phosphatase 78 U/L (40-130); Anion Gap 16.2 (5-19); Aspartate Amino Transferase 15 U/L (0-40); Blood Urea Nitrogen 13 mg/dL (8-23); Calcium 9.5 mg/dL (8.5-10.5); Carbon Dioxide 24 mmol/L (22-29); Chloride 102 mmol/L (98-107); Creatinine Clr Calc Pharmacy 67.4846; Globulin 2.6 g/dL (1.3-4.6); Glucose 110 mg/dL (65-115); Osmolality Calculated 287 mOsm/kg (285-295); Potassium 4.2 mmol/L (3.5-5.1); Prostate Specific Antigen 0.015 ng/mL (0-4); Sodium 138 mmol/L (136-145); Testosterone Total 2.5 ng/dL (193-740); Total Bilirubin 0.4 mg/dL (0.15-1.2); Total Protein 6.9 g/dL (6.6-8.7)
[2023-02-28] MEDS: leuprolide 22.5 mg Kit IM (14:24)
== END 2023-03-23 23:59 | disposition home or self-care (01) ==
PROVIDERS: Nurse Practitioner Family; PCP Nurse Practitioner Family; Visit Provider Internal Medicine Medical Oncology
DX: Z53.9 Procedure and treatment not carried out, unspecified reason (principal)
CPT/HCPCS: 36415; 80053; 84153; 84403; 85025; 96402; 99214; J9217